=== PATIENT | male | born 1980 | race Caucasian/White ===

== ENCOUNTER 2019-02-13 19:27 | Emergency (ER) | payer SELFPAY ==
[2019-02-13 19:30] VITALS: BP 159/106; PULSE 96; RESP 14; TEMP 37.4; O2SAT 98; BMI 33.0
[2019-02-13 19:41] LABS: Add Manual Diff / Slide Review NO; Basophils Absolute Auto 100 /uL (0-100); Basophils Percent Auto 1.3 % (0-2); Eosinophils Absolute Auto 300 /uL (0-450); Hematocrit 45.7 % (41-53); Hemoglobin 15.8 g/dL (13.5-17.5); Lymphocytes Absolute Auto 2300 /uL (1100-4500); Lymphocytes Percent Auto 32.2 % (25-40); Mean Corpuscular HGB Conc 34.6 % (30-36); Mean Corpuscular Hemoglobin 32.9 PG (26-34); Mean Corpuscular Volume 95.1 fL (80-100); Monocytes Absolute Auto 600 /uL (0-900); Monocytes Percent Auto 8.1 % (3-14); Neutrophils Absolute Auto 3800 /uL (1500-7000); Neutrophils Percent Auto 54.4 % (50-75); Platelet Count 269 X10^3/uL (150-400); Red Blood Cell Count 4.81 X10^6/uL (4.5-5.9); Red Cell Distribution Width 13.2 % (11.6-14.8); White Blood Cell Count 7.1 X10^3/uL (4.5-11.0)
[2019-02-13 19:47] LABS: INR 0.9 (0.9-1.3); Prothrombin Time 10.7 SECONDS (10.1-12.7)
[2019-02-13 19:50] LABS: PTT Partial Thromboplastin Tim 35 SECONDS (26.4-36.2)
[2019-02-13 19:52] LABS: Alanine Aminotransferase 43 IU/L (21-72); Albumin 4.8 g/dL (3.5-5.0); Albumin Globulin Ratio 1.5 (1.0-2.8); Alkaline Phosphatase 85 U/L (38-126); Aspartate Aminotransferase 37 IU/L (17-59); BUN Creatinine Ratio 18.8 (6-22); Bilirubin Total 0.5 mg/dL (0.2-1.3); Blood Urea Nitrogen 15 mg/dL (9-20); Carbon Dioxide 27 mmol/L (22-32); Chloride 100 mmol/L (98-107); Estimated Glomerular Filt Rate > 60.0 mL/min (>60); Globulin 3.2 g/dL (1.7-4.1); Glucose 106 mg/dL (70-100); HEMOLYSIS 22 (0-50); Lipase 48 U/L (23-300); Potassium 3.7 mmol/L (3.4-5.1); Sodium 138 mmol/L (137-145)
--- NOTE | 2019-02-13 19:57 | DI.US.S_ITS ---
PROCEDURE: US ABDOMEN COMPLETE INDICATIONS: epigastric/cramping TECHNIQUE: Real-time scanning was performed of the abdominal and retroperitoneal organs, with image documentation. Color and pulse Doppler interrogation was also performed of the hepatic and splenic vessels, or of the lesion of interest. COMPARISON: None. FINDINGS: Liver: Liver is mildly enlarged. It is normal in size and homogeneous in echotexture. Gallbladder: Gallbladder is unremarkable. Wall thickness is normal measuring 1 mm. Biliary ducts: No intrahepatic biliary ductal dilatation. Extrahepatic bile duct is 4.7 mm in caliber. Normal biliary caliber is 6-7 mm or less, or 10 mm or less post-cholecystectomy. Spleen: Spleen is normal in size and homogeneous in echotexture. Pancreas: Visualized portions of the pancreas appear normal. Kidneys: Both kidneys are normal in size and echotexture. Right kidney measures 10.1 cm long; left kidney measures 13.3 cm long. No hydronephrosis or nephrolithiasis. No solid renal masses. Aorta: Visualized abdominal aorta is normal in caliber at less than 3 cm. Iliacs: Proximal common iliac arteries are normal in caliber at less than 2.5 cm. IVC: Intrahepatic inferior vena cava is patent. Miscellaneous: No free abdominal fluid. IMPRESSION: Mild hepatomegaly. Dictated by: Jerica Alba M.D. on 02/13/2019 at 21:13 Approved by: Jerica Alba M.D. on 02/13/2019 at 21:15
[2019-02-13 19:58] VITALS: BP 163/97; PULSE 83; RESP 18; O2SAT 100
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
[2019-02-13 21:21] VITALS: BP 155/88; PULSE 84; RESP 20; TEMP 37.2; O2SAT 100
== END 2019-02-13 21:23 | disposition home or self-care (01) ==
PROVIDERS: Emergency Provider Emergency Medicine; Family Provider Family Medicine; PCP Family Medicine
DX: R10.33 Periumbilical pain (principal); R10.13 Epigastric pain; I10 Essential (primary) hypertension
CPT/HCPCS: 36591; 76700; 80053; 81003; 83690; 85025; 85610; 85730; 99282; 99285

== ENCOUNTER → 2020-03-11 07:30 | Outpatient (CLI) | payer OTHER, SELFPAY ==
--- NOTE | 2020-03-11 | DI.MRI.S_ITS ---
PROCEDURE: MR SHOULDER LT WO CON INDICATIONS: Left shoulder pain TECHNIQUE: Noncontrast oblique coronal T2 fast spin echo with fat saturation, oblique sagittal T1 spin echo and T2 fast spin echo with fat saturation, axial T1 spin echo and T2 fast spin echo with fat saturation through the shoulder. COMPARISON: [facility], RG, XR SHOULDER 3V LEFT, 01/09/2020, 23:35. FINDINGS: Image quality: Excellent. Rotator cuff: There is mild T2 signal elevation throughout the mid/posterior supraspinatus, as well as the anterior, mid, and posterior infraspinatus tendon at the humeral insertion site extending to the musculotendinous junction, indicating tendinopathy. There is superimposed low-grade partial-thickness tearing of the mid and posterior supraspinatus, as well as the anterior and mid infraspinatus tendon at the humeral insertion site, with musculotendinous junction extension into the infraspinatus. The teres minor tendon is intact. Subscapularis tendon is intact. Sagittal images demonstrate no muscle atrophy. Bones and bursae: No bone marrow contusions or fractures. Mild acromioclavicular joint degeneration. The acromion demonstrates conventional anatomy, without an os acromiale. No pathologic subacromial-subdeltoid or subcoracoid bursal fluid is present. Capsule and soft tissues: In the absence of intra-articular contrast, the labrum and glenohumeral ligaments appear intact. The long head of the biceps tendon demonstrates normal location and split type tearing. The rotator interval appears normal, without fibrosis. The coracohumeral ligament is normal in thickness. IMPRESSION: 1. Supraspinatus and infraspinatus tendinopathy with superimposed low-grade partial-thickness intrasubstance tearing. No full-thickness rotator cuff tear. 2. Acromioclavicular joint osteoarthritis. 3. Split type tearing of the biceps tendon. Dictated by: Ruma Little M.D. on 03/11/2020 at 9:24 Approved by: Ruma Little M.D. on 03/11/2020 at 9:26
== END ==
PROVIDERS: Family Provider Family Medicine; PCP Family Medicine; Referring Provider Family Medicine; Visit Provider Family Medicine
DX: M25.512 Pain in left shoulder (principal); M75.112 Incomplete rotator cuff tear or rupture of left shoulder, not specified as traumatic; M19.012 Primary osteoarthritis, left shoulder; S46.112A Strain of muscle, fascia and tendon of long head of biceps, left arm, initial encounter
CPT/HCPCS: 73221

== ENCOUNTER 2024-07-03 11:20 | Emergency (ER) | payer OTHER, SELFPAY ==
[2024-07-03 11:30] VITALS: BP 146/82; PULSE 80; RESP 16; TEMP 37.1; O2SAT 98; BMI 32.3
--- NOTE | 2024-07-03 11:34 | DI.RAD.S_ITS ---
PROCEDURE: XR HAND RT MIN 3V INDICATIONS: screwdriver puncture to hand TECHNIQUE: 3 views of the hand(s) acquired. COMPARISON: None. FINDINGS: Bones: No acute displaced fracture or dislocation. Suspect old fracture of the ulnar styloid. Small nonacute bone fragments also seen on lateral view adjacent to the distal radius. Soft tissues: No radiopaque foreign body. IMPRESSION: No acute radiographic abnormality. No radiopaque foreign body. Suspect old bone fragments adjacent to the distal radius and ulnar styloid If there is high concern for occult injury, consider repeat radiography or cross-sectional imaging. Dictated by: Chris Wall M.D. on 07/03/2024 at 12:11 Approved by: Chris Wall M.D. on 07/03/2024 at 12:12
--- NOTE | 2024-07-03 12:16 | ED_ITS ---
HPI - Wound/Laceration General Chief Complaint: Wound/Laceration Stated Complaint: work injury/laceration Time Seen by Provider: 07/03/24 12:16 Source: patient Mode of arrival: Ambulatory History of Present Illness HPI narrative: Mr. Nguyen is a pleasant R hand dominant 43-year-old male with a past medical history of hypertension anxiety who presents to the emergency department for right hand laceration that occurred approximately 3 hours prior to arrival. Patient was at work when he accidentally cut his right palm just proximal to the index finger using a screwdriver. He sustained approximately 2 cm laceration, bleeding is controlled with direct pressure at my time of examination. States that his tetanus shot was recent, within the last 5 years. Denies blood thinner or steroid use. Denies diabetes. Denies any other injuries to the hand and still has full range of motion of the hand. The wound was not contaminated with any ocean water. Related Data Home Medications Medication Instructions Recorded Confirmed hydrochlorothiazide 25 mg tablet 25 mg PO DAILY 02/13/19 02/13/19 omeprazole magnesium 20 mg 20 mg PO PRN PRN Acid Reflux 02/13/19 02/13/19 tablet,delayed release (Prilosec OTC) Previous Rx's Medication Instructions Recorded omeprazole 40 mg capsule,delayed 40 mg PO DAILY #30 caps 02/13/19 release sucralfate 1 gram tablet (Carafate) 1 gram PO QACHS #40 tabs 02/13/19 Allergies Allergy/AdvReac Type Severity Reaction Status Date / Time No Known Drug Allergies Allergy Verified 02/13/19 19:33 Review of Systems Review of Systems ROS Unobtainable: All systems reviewed & are unremarkable except as noted in HPI and below Patient History Medical History Amputation, traumatic, toes Hypertension GERD (gastroesophageal reflux disease) Social History Smoking Status: Current every day smoker Smoking Status: Current every day smoker tobacco type: cigarettes alcohol intake frequency: a few times a month Substance Use Type: does not use Exam Narrative Exam Narrative: GENERAL: 43 year old patient appears stated age. Well-developed patient, in no acute distress. HEAD: Atraumatic. Normocephalic. EYES: Extraocular motions intact. No scleral icterus. No injection or drainage. ENT: Nose without bleeding, purulent drainage. Airway patent. NECK: Trachea midline. Cervical ROM intact. CARDIOVASCULAR: Regular rate. RESPIRATORY: ?Nonlabored respirations. ?Speaking in clear, full sentences. ? EXTREMITIES: Full range of motion of right hand and sensation intact to light touch in the median, ulnar, radial distribution. NEURO: AOx3. ?Clear speech. ?Moves all 4 extremities appropriately. SKIN: Approximately 2 cm laceration on the palmar aspect of the right hand just proximal to the 2nd MCP joint fold. Bleeding is controlled during my examination. Brisk cap refill distal to the wound. Initial Vital Signs Initial Vital Signs: Vital Signs Temperature 98.8 F 07/03/24 11:30 Pulse Rate 80 07/03/24 11:30 Respiratory Rate 16 07/03/24 11:30 Blood Pressure 146/82 H 07/03/24 11:30 Pulse Oximetry 98 07/03/24 11:30 Oxygen Delivery Method Room Air 07/03/24 11:30 Procedures Laceration Repair Laceration 1: Time of procedure: 12:54 Site: hand Size (cm): 2 Description: linear Depth: simple, single layer Local Anesthetic: lidocaine 1% and with epi Amount of anesthesia used (mL): 3 Pre-repair: wound explored, irrigated extensively and cleansed with chlorhexadine Skin layer closed with: nylon Skin layer suture size: 4-0 Number of sutures: 3 Technique: simple, interrupted Course Orders Ordered: Discontinued Medications Bacitracin (Bacitracin Oint 0.9 Gm Pckt) 1 applic TOP NOW ONE Stop: 07/03/24 12:28 Last Admin: 07/03/24 12:29 Dose: 1 applic Documented By: CTS Lidocaine/Epinephrine (Lidocaine 1% W/Epi) 4 ml INJ INTRA-OP ONE Stop: 07/03/24 12:23 Last Admin: 07/03/24 12:29 Dose: 4 ml Documented By: CTS Vital Signs Vital signs: Vital Signs - 8 hr 07/03/24 11:30 Temperature 98.8 F Pulse Rate 80 Respiratory Rate 16 Blood Pressure 146/82 H Pulse Oximetry 98 Oxygen Delivery Method Room Air MDM - Wound/Laceration Medical Records Attestation: I reviewed the patient's medical records. Imaging Data Right Hand XRay: My Impression: On my independent interpretation of right hand x-ray, no radiopaque foreign body near the 2nd MCP where laceration occurred. Radiologist's Impression: PROCEDURE: XR HAND RT MIN 3V INDICATIONS: screwdriver puncture to hand TECHNIQUE: 3 views of the hand(s) acquired. COMPARISON: None. FINDINGS: Bones: No acute displaced fracture or dislocation. Suspect old fracture of the ulnar styloid. Small nonacute bone fragments also seen on lateral view adjacent to the distal radius. Soft tissues: No radiopaque foreign body. IMPRESSION: No acute radiographic abnormality. No radiopaque foreign body. Suspect old bone fragments adjacent to the distal radius and ulnar styloid If there is high concern for occult injury, consider repeat radiography or cross-sectional imaging. [facility] Narrative Medical decision making narrative: 43-year-old man presents to the emergency department for right hand laceration that occurred prior to arrival. Differential diagnosis includes but not limited to laceration, infection, foreign body, tendon damage, etc. on exam patient is in no acute distress, nontoxic appearing. He has a 2 cm laceration on his right palm just proximal to the MCP joint. Laceration appears superficial and bleeding is controlled. X-ray negative for foreign body or fracture. Full range of motion of right hand. Tdap is up-to-date. After shared decision- making with the patient, we will proceed with suture repair of wound. Wound was irrigated and cleansed extensively. Wound was anesthetized and repaired using 3 Ethilon sutures. Bacitracin antibiotic ointment and a sterile nonadherent dressing was applied. Patient tolerated procedure well. Extensively discussed proper wound care and signs and symptoms of infection. After shared decision-making with the patient, he was prescribed a short course of cephalexin for empiric wound infection coverage given dirty nature of the wound. Advised removal in 7-10 days. All questions answered. Patient is agreeable to the plan and stable for discharge. Discharge Plan Departure Patient Disposition: Home Clinical Impression: Laceration of hand, right Qualifiers: Encounter type: initial encounter Foreign body presence: without foreign body Qualified Code(s): S61.411A - Laceration without foreign body of right hand, initial encounter Instructions: DI for Laceration Repair Activity Restrictions/Additional Instructions: Today you had a laceration to your right hand. We have placed 3 sutures. They need to be removed in 7-10 days. You may do this in your doctor's office, the [id number], or here if necessary. Please keep the dressing on your wound clean, dry, and intact for the next 24 hours. After this time, you may remove the dressing and gently clean the wound with soap and water, then pat dry. Keep the wound clean and covered. Avoid soaking the wound in any water such as a bath, pool, or the ocean. If you develop any signs of wound infection such as increased redness, pus drainage, streaking redness, or fevers, please return to the ER immediately for evaluation. Once sutures are removed and the wound has healed, apply sunscreen daily to reduce the appearance of scars. We updated your tetanus shot today. Prescriptions: No Action sucralfate [Carafate] 1 gram tablet 1 gram PO QACHS Qty: 40 0RF omeprazole 40 mg capsule,delayed release(DR/EC) 40 mg PO DAILY Qty: 30 0RF hydrochlorothiazide 25 mg Tablet 25 mg PO DAILY Prilosec OTC 20 mg Tablet,Delayed Release (Dr/Ec) 20 mg PO PRN PRN (Reason: Acid Reflux) Referrals: Sheldon Henry MD [Primary Care Provider] - Stand Alone Forms: Patient Portal/API/Survey, Work Release Note
[2024-07-03] MEDS: BACITRACIN OINT 0.9 GM PCKT 1 APPLIC TOP (12:29)
[2024-07-03] MEDS: LIDOCAINE 1% W/EPI 4 ML INJ (12:29)
--- NOTE | 2024-07-03 13:09 | PC.NURSE ---
Pt was seen assessed and treated prior to this RN arrival.
[2024-07-03 13:11] VITALS: BP 132/78; PULSE 77; RESP 18; O2SAT 96
== END 2024-07-03 13:09 | disposition home or self-care (01) ==
PROVIDERS: Emergency Provider Physician Assistant; Family Provider Family Medicine; PCP Family Medicine
DX: S61.411A Laceration without foreign body of right hand, initial encounter (principal); W27.0XXA Contact with workbench tool, initial encounter
CPT/HCPCS: 12001; 73130; 99283

== ENCOUNTER → 2025-03-05 09:44 | Outpatient (CLI) | payer OTHER, SELFPAY ==
--- NOTE | 2025-03-05 09:48 | DI.RAD.S_ITS ---
PROCEDURE: XR ELBOW LT MIN 3V INDICATIONS: BURSITIS LEFT ELBOW TECHNIQUE: 3 views of the elbow were acquired. COMPARISON: None. FINDINGS: Bones: There are no osseous abnormalities. Elbow joint: Normal in width and alignment without arthritic change. There are no effusions. Soft tissues: Mild soft tissue swelling olecranon appreciated IMPRESSION: Mild vallecular non soft tissue swelling which can indicate olecranon bursitis or edema. Dictated by: Jose Eduardo Soni M.D. on 03/06/2025 at 10:07 Approved by: Jose Eduardo Soni M.D. on 03/06/2025 at 10:08
== END ==
PROVIDERS: Family Provider Family Medicine; PCP Family Medicine; Referring Provider Registered Nurse; Visit Provider Registered Nurse
DX: M70.22 Olecranon bursitis, left elbow (principal); M79.89 Other specified soft tissue disorders
CPT/HCPCS: 73080

== ENCOUNTER 2025-05-14 11:14 | Emergency (ER) | payer OTHER, SELFPAY ==
[2025-05-14 11:29] VITALS: BP 131/88; PULSE 72; RESP 16; TEMP 36.7; O2SAT 99; BMI 32.7
--- NOTE | 2025-05-14 11:39 | DI.RAD.S_ITS ---
PROCEDURE: XR SHOULDER LT MIN 2V INDICATIONS: Fall, reduced ROM and pain TECHNIQUE: 3 views of the shoulder were acquired. COMPARISON: , MR, MR SHOULDER LT WO CON, 03/11/2020, 8:00. [facility], RG, XR SHOULDER 3V LEFT, 01/09/2020, 23:35. FINDINGS: Bones: No fractures or dislocations. No suspicious bony lesions. Visualized ribs appear intact. Soft tissues: Calcific tendinopathy is seen. The visualized lung demonstrates an unremarkable appearance. IMPRESSION: No acute plain film abnormality is seen. Underlying calcific tendinopathy can be seen. Dictated by: Ricardo Merida M.D. on 05/14/2025 at 11:22 Approved by: Ricardo Merida M.D. on 05/14/2025 at 11:24
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
[2025-05-14 13:42] VITALS: BP 165/96; PULSE 74; RESP 18; O2SAT 96
== END 2025-05-14 13:43 | disposition home or self-care (01) ==
PROVIDERS: Emergency Provider Physician Assistant; Family Provider Family Medicine; PCP Family Medicine
DX: S43.402A Unspecified sprain of left shoulder joint, initial encounter (principal); W16.42XA Fall into unspecified water causing other injury, initial encounter; M75.32 Calcific tendinitis of left shoulder; Y99.0 Civilian activity done for income or pay
CPT/HCPCS: 73030; 99282; 99283

== ENCOUNTER → 2025-06-10 08:35 | Outpatient (CLI) | payer OTHER, SELFPAY ==
--- NOTE | 2025-06-10 08:36 | DI.MRI.S_ITS ---
PROCEDURE: MR SHOULDER LT WO CON INDICATIONS: left shoulder pain TECHNIQUE: Noncontrast oblique coronal T2 fast spin echo with fat saturation, oblique sagittal T1 spin echo and T2 fast spin echo with fat saturation, axial T1 spin echo and T2 fast spin echo with fat saturation through the shoulder. COMPARISON: [facility], CR, XR SHOULDER LT 2+ VIEWS, 05/14/2025, 11:43. [facility], MR, MR SHOULDER LT WO CON, 03/11/2020, 8:00. FINDINGS: Image quality: Excellent. Rotator cuff: There is full-thickness, full width tear of the supraspinatus and infraspinatus at the footprint. Tendon retraction supraspinatus and infraspinatus to the level of the glenoid. The teres minor is unremarkable. Moderate tendinosis of the subscapularis, without tear. Mild atrophy and muscle edema of the supraspinatus and infraspinatus. Bones and bursae: Mild degenerative changes of the acromioclavicular joint. Subacromial enthesophyte is present. Type 1 acromion. No os acromiale. Mild subacromial/subdeltoid bursitis. Mild subchondral cystic changes and marrow edema at the lesser tuberosity, reactive. Mild subchondral cystic changes at the greater tuberosity, reactive as well. No acute fracture. Superior subluxation of the humeral head. No focal chondral defect of the glenohumeral articulation. Capsule and soft tissues: Anterior superior labral tear. No paralabral cyst. Moderate tenosynovitis of the extra-articular biceps tendon. Partial-thickness tear of the proximal extra-articular biceps tendon low-grade interstitial tear of the intra- articular biceps tendon. Moderate tendinosis of the distal intra-articular biceps tendon. Small glenohumeral effusion. Large subscapularis bursitis. No intra-articular body. IMPRESSION: 1. Full-thickness, full width tear of the supraspinatus and the infraspinatus, progressed from prior exam. 2. Moderate tenosynovitis of the extra-articular biceps tendon with partial thickness tear. Moderate tendinosis of the intra-articular biceps tendon with low-grade interstitial tear. 3. Large subscapularis bursitis. Dictated by: Melba Ortiz M.D. on 06/10/2025 at 10:42 Approved by: Melba Ortiz M.D. on 06/10/2025 at 10:51
== END ==
LOC: MRI 08:36
PROVIDERS: Family Provider Family Medicine; PCP Family Medicine; Referring Provider Orthopaedic Surgery; Visit Provider Orthopaedic Surgery
DX: S46.212A Strain of muscle, fascia and tendon of other parts of biceps, left arm, initial encounter (principal); S43.432A Superior glenoid labrum lesion of left shoulder, initial encounter; M75.122 Complete rotator cuff tear or rupture of left shoulder, not specified as traumatic; M62.512 Muscle wasting and atrophy, not elsewhere classified, left shoulder; M75.52 Bursitis of left shoulder; M65.812 Other synovitis and tenosynovitis, left shoulder; M25.412 Effusion, left shoulder; M25.512 Pain in left shoulder
CPT/HCPCS: 73221

== ENCOUNTER 2025-07-01 09:04 | Day surgery (SDC) | payer OTHER, SELFPAY ==
[2025-06-25 15:05] VITALS: BMI 32.7
[2025-07-01] VITALS (7 sets, daily range): BP systolic 127–150; BP diastolic 73–95; PULSE 71–106; RESP 12–20; TEMP 36.1–36.3; O2SAT 92–97
[2025-07-01] MEDS: ACETAMINOPHEN 325 MG TABLET 975 MG PO (09:42)
[2025-07-01] MEDS: LACTATED RINGERS 1,000 ML 42 ML IV ×2 (09:42→14:30)
--- NOTE | 2025-07-01 11:55 | P.OP.PRE_ITS ---
Pre-operative Note
--- NOTE | 2025-07-01 11:55 | PM.PREOP ---
Pre-operative Note Interval Note History & Physical reviewed/Exam performed by Physician: Yes Changes to H&P: No
--- NOTE | 2025-07-01 12:44 | SUR.PREOP ---
Time out 1222. Block start time 1224] . Monitoring initiated and maintained throughout procedure. Oxygen and medications given by anesthesiologist . Patient remained stable throughout procedure, no adverse reactions noted. Block end time 1234.
--- NOTE | 2025-07-01 13:24 | SUR.OPER ---
Addendum entered by Aleja Johnson RN 07/01/25 13:28: Tape over blanket over patient torso Original Note: Beach chair with Ge/Anuradha shoulder positioner. Lower body on padded OR bed. Head in foam padded head cradle, secured with straps. Non-operative arm secured <90 degrees abduction. Pillow under knees. Safety belt at thigh. Cloth tape over blanket over lower legs. Surgeon approved of final position prior to start of procedure.
[2025-07-01] MEDS: SODIUM CHLORIDE IRRIG SOLUTION 3,000 ML, EPINEPHrine 3 MG IRR (14:31)
--- NOTE | 2025-07-01 16:04 | P.OP_ITS ---
Operative Date/Time/Diagnoses
--- NOTE | 2025-07-01 16:04 | PM.OP.1 ---
Operative Date/Time/Diagnoses Date of procedure: 07/01/25 Time of procedure: 13:00 Pre-op diagnosis: Left shoulder rotator cuff tear Post-op diagnosis: same Procedure & Clinicians Procedure: Left shoulder rotator cuff repair, acromioplasty and labral debridement Same procedure(s) as scheduled: Yes Surgeon: Neeraj Joya Assisted?: Yes Wharf Hand: Maribell Helton Anesthesia Type: General Operative Notes Findings: Complete supraspinatus rotator cuff tear. Frayed labral tear but no full-thickness tearing. Closure Type: primary Specimen(s): none sent Applied: none Estimated Blood Loss (mL): 25 Procedure in detail: Patient Name: REGLA BLOKC Date of Operation: 07/01/25 Preoperative diagnosis: Left Shoulder Rotator Cuff Tear, and possible SLAP tear Procedure performed: Left Shoulder Diagnostic Arthroscopy, Rotator Cuff Repair, acromioplasty and labral debridement Postoperative diagnosis: Left shoulder rotator cuff tear and labral degeneration Primary Surgeon: Neeraj Joya MD Secondary Surgeon: GARETH Haas Physician Wharf Hand was used throughout the entirety of the case. They assisted with room set up, patient positioning, draping, retraction, reduction, fixation and closure. They were essential for the success of the case. Anesthesia: General EBL: 25 ml Implants: Arthrex SpeedBridge Double Row (3 implants Medially and Two Swivel Locks Laterally) Indication for Surgery: Nonoperative management failed to resolve symptoms. The risks, benefits, and alternatives were discussed. Risks included pain, bleeding, infection, damage to nearby structures, lack of symptom relief, implant complications, stiffness, need for further surgeries, DVT, PE, stroke, and even . They signed a written consent form. Examination Under Anesthesia: ROM: Forward flexion 170, abduction 170 Anterior load and shift: Grade Posterior load and shift: Grade Inferior sulcus: Grade Diagnostic Findings: Rotator interval: Normal Biceps tendon & SLAP: Mild fraying about the posterior labrum however anchor intact. Biceps tendon stable Subscapularis: Intact Rotator Cuff: Full-thickness supraspinatus tear that was retracted back to the glenoid. HAGL: No HAGL Labrum: Small amounts of fraying Glenoid Cartilage: Mild chondromalacia Humeral Head Cartilage: Mild chondromalacia Procedure in Detail: The patient was met in the preoperative holding on the day of the procedure. Operative extremity was signed. Consent was verified. The patient desired to proceed. Regional anesthesia was obtained in the preoperative area. They were brought to the operating room and surrendered to anesthesia. Once general anesthesia was obtained they were placed in the beach chair position. All bony prominences were well-padded. They were then prepped and draped in the standard sterile fashion. A surgical timeout was held to confirm the patient procedure, identity, laterality, allergies, images, and antibiotics. All were in agreement and we proceeded. A standard diagnostic arthroscopy was performed utilizing posterior and anterior superior portal sites. The anterior superior portal site was created under direct visualization. The findings of the diagnostic arthroscopy can be found above. Upon examination of the rotator cuff, we were easily able to visualize the subacromial space from inside the joint. Biceps tendon did not have any significant tearing and the anchor was stable. We decided that he did not need a biceps tenodesis. Subacromial Decompression: The obturator was placed into the subacromial space along the underside of the acromion from the posterior portal passing lateral to the coracoacromial ligament and out the anterior incision. The crystal cannula was threaded over this and the serfas wand was placed into the cannula. The camera was inserted and the cannula was backed out until the camera and instruments were in the subacromial space. The serfas wand was used to excise tissue from the underside of the acromion and establish a small space for viewing. A lateral incision was made after localization with a spinal needle. The shaver was inserted and the bursa was excised completely, taking care to excise all bursa from the anterior and lateral gutters. The rotator cuff was protected throughout. The rotator cuff was probed and found to be intact. The shaver was then used to suha the underside of the acromion of all portions that were downsloping or not smooth. The shoulder was taken through a range of motion and the bursa was found to be fully excised. Rotator Cuff Repair: The rotator cuff tear was identified from the subacromial space. It was decided that this would require a Speedbridge fixation with both a medial and lateral row. The frayed edges of the rotator cuff were debrided back. The new footprint was debrided of soft tissue. A medial anchor was placed right on the chondral border, the suture was then passed using a scorpion through the rotator cuff. This was then repeated 2 more times moving anteriorly. One limb from each medial implants was preloaded into another swivel lock anchor eyelet. Using a punch, two lateral bone sockets were prepared approximately 5-10 mm lateral to the edge of the tuberosity. The swivel locks were then inserted into the lateral bone sockets while applying tension to the Fibertape which reduced and compressed the torn rotator cuff to the bone. The shoulder was taken through a range of motion which demonstrated a fully repair rotator cuff which moved continuously with the movement of the shoulder. Final images were obtained and the instruments were removed from the shoulder. The incisions were closed with 3-0 Nylon, sterile dressing and sling were applied. Postoperative Plan: Same day discharge Sling use for 6 weeks Physical Therapy consult placed Follow up with ortho in 2 weeks for suture removal and clinical examination Neeraj Joya MD Complications: none Post-operative Condition: stable Disposition: PACU
== END 2025-07-01 17:02 | disposition home or self-care (01) ==
PROVIDERS: PCP Family Medicine; Referring Provider Orthopaedic Surgery; Visit Provider Orthopaedic Surgery
PROC: (CPT 29827; principal; 2025-07-01 10:45)
DX: M75.112 Incomplete rotator cuff tear or rupture of left shoulder, not specified as traumatic (principal); G89.18 Other acute postprocedural pain; I10 Essential (primary) hypertension; Y92.89 Other specified places as the place of occurrence of the external cause; V92.09XA Drowning and submersion due to fall off unspecified watercraft, initial encounter; M94.212 Chondromalacia, left shoulder
CPT/HCPCS: 29827; 29826; 64450; C1713; J0165; J0330; J0689; J1100; J1171; J1885; J2405; J2704; J3010; J7120